=== PATIENT | female | born 1990 | race Caucasian/White ===

== ENCOUNTER 2017-01-28 16:00 | Inpatient (IN) | payer OTHER ==
[~2017-01-28] VITALS: Ht 154.9 cm; Wt 51.7 kg
--- NOTE | ~2017-01-28 | PN ---
Unit #: [id number] #: [id number] Patient: ARSALAN ALEXANDER [id number] [facility] [address] [place] [address] [id number] MR#: [id number] NAME: ARSALAN ALEXANDER ROOM: [facility] Age: 26 Sex: F Admission Date: 01/28/2017 : 1990 Attending Physician: Mike Perkins M.D. Admitting Physician: Mike Perkins M.D. Primary Care Physician: Primary Care Physician Laurel RIDLEY PROGRESS NOTES DATE OF SERVICE: 01/30/2017 SUBJECTIVE Ms. Ulrich is a 26-year-old white female with substance abuse and mood disorder. has been cooperative with treatment recommendation and was taking the medications and tolerating them fairly well with no reported side effects. MENTAL STATUS EXAMINATION Young white female, who was casually dressed with fair personal hygiene, appears to be in no acute distress or discomfort. She was awake and alert with intact orientation. Her mood was anxious with a congruent affect. Her speech was slow and restricted in content. She denies any suicidal or homicidal ideations and also denies any auditory or visual hallucinations. Her insight and judgment remain slightly impaired. TREATMENT PLAN 1. We will continue on current medications and treatment protocol. We will monitor her response to medications and make further adjustments as needed. 2. We will continue to follow up. Dictated by... Reyes Montoya/aristeo TD: 01/30/2017 07:59 JOB #: [id number] [facility] PROGRESS NOTES Page 1 of 1 X Mike Perkins MD PROGRESS NOTE
--- NOTE | ~2017-01-28 | HP ---
Unit #: [id number] #: [id number] Patient: ASUNCION ALEXANDER [id number] [place] [address] [id number] MR#: [id number] NAME: ASUNCION ALEXANDER ROOM: [facility] Age: 26 Sex: F Admission Date: 01/28/2017 : 1990 Attending Physician: Mike Perkins M.D. Admitting Physician: Mike Perkins M.D. Primary Care Physician: Primary Care Physician No HISTORY AND PHYSICAL HISTORY OF PRESENT ILLNESS Asuncion is a 26 year old admitted to [facility] because of her drug use. She uses crack cocaine and methamphetamine. PAST MEDICAL HISTORY History of illicit substance abuse to include crack cocaine and methamphetamine. PAST SURGICAL HISTORY Nothing reported. ALLERGIES No known drug allergies. SOCIAL HISTORY Smokes one pack per day. Drinks alcohol frequently. Admits to a history of illicit drug use to include crack cocaine and methamphetamine. FAMILY HISTORY Medically noncontributory. REVIEW OF SYSTEMS CONSTITUTIONAL: No fever or chills. HEENT: Denies any sore throat, ear pain or runny nose. CARDIOVASCULAR: Denies chest pain, irregular heart rhythm or palpitations. CHEST: Denies shortness of breath or cough. No hemoptysis. GASTROINTESTINAL: Denies nausea, vomiting, diarrhea or chronic constipation. ENDOCRINE: Denies history of increased thirst or urination. No recent significant weight loss or gain. GENITOURINARY: Denies dysuria, frequency, or hematuria. SKIN: Denies any rashes. HEMATOLOGIC: Denies history of increased bleeding or bruising. MUSCULOSKELETAL: Denies any hot, swollen joints. No generalized muscle pain. NEUROLOGIC: Denies problems with vision or speech. No frequent, severe headaches. No numbness, tingling or weakness in any extremities. Denies loss of bladder or bowel control. CURRENT MEDICATIONS 1. Vistaril 50 mg q. 6 hours p.r.n. 2. Desyrel p.r.n. 3. Milk of Magnesia p.r.n. Unit #: [id number] #: [id number] Patient: ASUNCION ALEXANDER 4. Maalox p.r.n. 5. Tylenol p.r.n. 6. Nicotine patch 14 mg q. day. PHYSICAL EXAMINATION GENERAL: Alert, well nourished. No apparent distress. VITAL SIGNS: Blood pressure 100/60, heart rate 76, respirations 16, and temperature 98.6. WEIGHT: 114. HEIGHT: 5 feet 1 inches. SKIN: Warm and dry without rash or lesion. HEENT: Normocephalic. TMs not viewed. Oral and nasal passages clear. Conjunctivae clear. PERRLA. EOMs intact. NECK: Supple without lymphadenopathy or thyromegaly. HEART: Regular rate and rhythm without murmur. LUNGS: Clear. ABDOMEN: Soft, nontender. : Not done. EXTREMITIES: No evidence of cyanosis, clubbing or edema. Moves all without focal deficit. NEUROLOGICAL: Grossly within normal limits. Cranial Nerves: II: Visual middleton are intact. III, IV AND : Extraocular movements are intact. Pupils are equal, round and reactive to light. V: Facial sensation is grossly normal. VII: Facial movements and expression are normal. VIII: Auditory acuity grossly intact. IX, X: Uvula is midline. Phonation is normal. XI: Patient shrugs shoulders and turns head normally. XII: Tongue protrudes in the midline. Sensory and Motor Function: Sensory and motor sensation is grossly normal. Motor: moves all extremities well. Coordination: Gait is normal. Deep Tendon Reflexes: Intact. IMPRESSION Psychiatric admission. RECOMMENDATIONS PSYCHIATRIC: Per psychiatrist. MEDICAL: I see no contraindication to participate in this facility's activities. MEDICAL PROGNOSIS Good. MEDICAL CONDITION Stable. Dictated by... Rabia Mcneal P.A.-C. for Reyes Shin/caterina TD: 01/29/2017 12:50 JOB #: [id number] Unit #: [id number] #: [id number] Patient: ASUNCION ALEXANDER HISTORY AND PHYSICAL Page 1 of 1 X Rabia Mcneal HISTORY AND PHYSICAL
--- NOTE | ~2017-01-28 | PN ---
Unit #: [id number] #: [id number] Patient: ARSALAN FUNG [id number] [facility] [address] [place] [address] [id number] I MR#: [id number] NAME: ARSALAN FUNG ROOM: P202 Age: 26 Sex: F Admission Date: 01/28/2017 : 1990 Attending Physician: Mike Perkins M.D. Admitting Physician: Mike Perkins M.D. Primary Care Physician: Primary Care Physician Laurel MENDOZA NOTES DATE OF SERVICE: 02/03/2017 SUBJECTIVE Ms. Fung a 26-year-old white female, who was seen today and chart was reviewed, and case was discussed with the staff. She has been anxious, withdrawn, and rather seclusive to herself. Meanwhile, she has been cooperative with treatment recommendations and has been taking medications and tolerating them fairly well with no reported side effects. MENTAL STATUS EXAMINATION Young white female, who was casually dressed with fair personal hygiene, appears to be in no acute distress or discomfort. She was awake and alert with intact orientation. Her mood was anxious with a congruent affect. She denies any suicidal or homicidal ideations and also denies any auditory or visual hallucinations. Her insight and judgment remain slightly impaired. TREATMENT PLAN 1. We will continue on her current medications and treatment protocol. We will monitor her response to medications and make further adjustments as needed. 2. We will continue to follow up. Dictated by... Reyes Montoya/virajl TD: 02/05/2017 01:10 JOB #: [id number] [facility] PROGRESS NOTES Page 1 of 1 X Mike Perkins MD PROGRESS NOTE
--- NOTE | ~2017-01-28 | PN ---
Unit #: [id number] #: [id number] Patient: ARSALAN FUNG [id number] [facility] [address] [place] [address] [id number] I MR#: [id number] NAME: ARSALAN FUNG ROOM: [facility] Age: 26 Sex: F Admission Date: 01/28/2017 : 1990 Attending Physician: Mike Perkins M.D. Admitting Physician: Mike Perkins M.D. Primary Care Physician: Primary Care Physician Laurel RIDLEY PROGRESS NOTES DATE 02/01/2017 DISCUSSION Ms. Fung is a 26-year-old white female with mood disorder and substance abuse who was seen today. Chart was reviewed and case was discussed with the staff. She has been anxious, withdrawn, depressed, and rather seclusive to herself. Meanwhile, she has been cooperative with the treatment recommendations and has been taking the medications and tolerating them fairly well with no reported side effects. MENTAL STATUS EXAMINATION Young white female who is casually dressed with fair personal hygiene, appears to be in no acute distress or discomfort. The patient was awake and alert on interaction with intact orientation. Her mood is anxious and depressed with a congruent affect. She reports having suicidal ideations, but denies any homicidal ideations. Her insight and judgement remain slightly impaired. TREATMENT PLAN 1. We will continue her on her current medications and treatment protocol. We will monitor her response to the medications and make further adjustments as needed. 2. We will continue to follow up. Dictated by... Reyes Montoya/jadeng TD: 02/01/2017 07:47 JOB #: [id number] Unit #: [id number] #: [id number] Patient: ARSALAN FUNG PROGRESS NOTES Page 1 of 1 X Mike Perkins MD PROGRESS NOTE
--- NOTE | ~2017-01-28 | PA ---
Unit #: [id number] #: [id number] Patient: ARSALAN FUNG [id number] [facility] [address] [place] [address] [id number] I MR#: [id number] NAME: ARSALAN FUNG ROOM: P174 Age: 26 Sex: F Admission Date: 01/28/2017 : 1990 Date of Assessment: 01/29/2017 Attending Physician: Mike Perkins M.D. Admitting Physician: Mike Perkins M.D. Primary Care Physician: Primary Care Physician No PSYCHIATRIC ASSESSMENT DATE OF SERVICE 01/29/2017. IDENTIFYING DATA Ms. Fung is a 26-year-old single white female, who is a resident of [place], [place], and was self-referred to the hospital on a voluntary basis. CHIEF COMPLAINT "I've been experiencing anxiety and my mind is racing." HISTORY OF PRESENT ILLNESS Ms. Fung is a 26-year-old white female with history of substance abuse and mood disorder, who was brought to the hospital reporting increasing anxiety and stated that she used methamphetamine 3 days ago via snorting and smoking, but denies any current withdrawal symptoms. Reports that she has only used methamphetamine twice and reports significant sleep impairment and has not slept in the last 5 days and reports appetite disturbance with weight loss and PTSD related to multiple negative life experiences. 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 [place], and reports experiencing suicidal ideation since age 5 and her suicidal thoughts have increased recently due to her substance abuse issues and she has been abusing alcohol, spice, and crack cocaine, and now methamphetamine, and last time she consumed alcohol was within the last 3 days and reports previously using alcohol on a few times a week basis and reports that last use of crack cocaine was 3 weeks ago and does endorse increasing depression, anxiety, irritability, feelings of hopelessness and helplessness, and suicidal ideations and reports that she has attempted suicide 5 times and as such, was seen to be a significant danger to herself and therefore, recommendation for inpatient level of care for safety and stabilization was made and the patient was transferred to us. SUBSTANCE ABUSE HISTORY The patient reports history of alcohol, cocaine, and methamphetamine abuse. PAST PSYCHIATRIC HISTORY The patient reports history of outpatient psychiatric treatment in the past. Review of the medical records indicate currently she is not active in treatment program, is not seeing a psychiatrist, and is not taking any psychotropic medications. PAST MEDICAL HISTORY Unit #: [id number] #: [id number] Patient: ARSALAN FUNG The patient's medical history is insignificant. ALLERGIES No known medication allergies. PERSONAL AND SOCIAL HISTORY A 26-year-old white female, who reports that she is single, unemployed, and essentially homeless and has poor social support system. MENTAL STATUS EXAMINATION Young white female who was casually dressed with fair personal hygiene, appears to be in no acute distress or discomfort. She was awake and alert on interaction with intact orientation to time, place, and person. Her mood was anxious and depressed with a congruent affect. Her speech was slow and restricted in content. Her thought processes were disorganized with some looseness of associations and flight of ideas and suicidal ideations. Her insight and judgment remain significantly impaired. DIAGNOSTIC IMPRESSION Psychiatric: Bipolar disorder, most recent episode depressed, recurrent, moderate, without psychotic features; alcohol abuse, moderate; cocaine abuse, moderate; methamphetamine abuse, moderate. Medical: None. Stressors: Moderate psychosocial stressors. TREATMENT PLAN 1. The patient has presented with history of mood disorder and substance abuse and has been decompensating and will need inpatient hospitalization for safety and stabilization. We will start her back on her home medications. We will adjust the medications and monitor response. 2. Supportive therapy was provided to the patient. 3. Safe, structured, and nourishing environment will be provided. ESTIMATED LENGTH OF STAY 4 to 5 days. ABILITY TO HELP SELF Limited. WILLINGNESS TO HELP SELF The patient appears to be willing to help self. STRENGTHS 1. Communicative. 2. Cooperative. PROBLEMS 1. Chronic dysphoric symptoms. 2. Chronic chemical dependency. 3. Poor social support system. DISCHARGE CRITERIA This will be contingent upon the patient's ability to go through detox without having any significant withdrawal symptoms as well as her ability to stay safe to herself, particularly after discharge from the hospital. Dictated by... Unit #: [id number] #: [id number] Patient: ARSALAN FUNG Reyes Montoya/aristeo TD: 01/29/2017 07:31 JOB #: [id number] PSYCHIATRIC ASSESSMENT Page 1 of 1 X Mike Perkins MD PSYCHIATRIC ASSESSMENT
--- NOTE | ~2017-01-28 | PN ---
Unit #: [id number] #: [id number] Patient: ARSALAN FUNG [id number] [facility] [address] [place] [address] [id number] MR#: [id number] NAME: ARSALAN FUNG ROOM: P202 Age: 26 Sex: F Admission Date: 01/28/2017 : 1990 Attending Physician: Mike Perkins M.D. Admitting Physician: Mike Perkins M.D. Primary Care Physician: Primary Care Physician Laurel RIDLEY PROGRESS NOTES DATE 02/02/2017 DISCUSSION Ms. Ms. Fung is a 26-year-old white female who was seen today and chart was reviewed and case was discussed with the staff. She has been anxious, withdrawn and rather seclusive to herself. Meanwhile, she has been cooperative with treatment recommendations as she has been taking the medications and tolerating them fairly well with no reported side effects. MENTAL STATUS EXAMINATION Young white female who was casually dressed with fair personal hygiene, appears to be in no acute distress or discomfort. She was awake and alert on interaction with intact orientation. Her mood was anxious with congruent affect. She denies any suicidal or homicidal ideations. Also, denies any auditory or visual hallucinations. Her insight and judgement remains slightly impaired. TREATMENT PLAN 1. We will continue her on her current medications and treatment protocol. We will monitor her response and make further adjustments as needed. 2. We will continue to follow up. Dictated by... Reyes Montoya/chan TD: 02/04/2017 05:58 JOB #: [id number] Unit #: [id number] #: [id number] Patient: ARSALAN FUNG PROGRESS NOTES Page 1 of 1 X Mike Perkins MD PROGRESS NOTE
--- NOTE | ~2017-01-28 | CO ---
Unit #: [id number] #: [id number] Patient: ARSALAN ALEXANDER [id number] [facility] [address] [place] [address] [id number] I MR#: [id number] NAME: ARSALAN ALEXANDER ROOM: [facility] Age: 26 Sex: F Admission Date: 01/28/2017 : 1990 Attending Physician: Mike Perkins M.D. Consultation Date: 01/29/2017 CONSULTATION REPORT SUBJECTIVE Sydney is a 26-year-old, admitted with a long history of illicit substance abuse include crack cocaine and methamphetamine. At the time of her admission H and P which was completed on 01/29/2017, she gave no history of herpes simplex nor did she report any "blisters." Evidently, she had reported possible blisters in the groin area to admitting nurse. She had no complaints of pain. PLAN The patient can follow up with her PCP. We do not do viral cultures at this facility. Dictated by... Rabia Mcneal P.A.-C. for Reyes Shin/aristeo TD: 01/31/2017 17:42 JOB #: [id number] CONSULTATION REPORT Page 1 of 1 X Rabia Mcneal CONSULTATION REPORT
--- NOTE | ~2017-01-28 | PN ---
Unit #: [id number] #: [id number] Patient: ARSALAN FUNG [id number] [facility] [address] [place] [address] [id number] I MR#: [id number] NAME: ARSALAN FUNG ROOM: 74 Age: 26 Sex: F Admission Date: 01/28/2017 : 1990 Attending Physician: Mike Perkins M.D. Admitting Physician: Mike Perkins M.D. Primary Care Physician: Primary Care Physician Laurel RIDLEY PROGRESS NOTES DATE January 31, 2017 DISCUSSION Ms. Fung is a 26-year-old white female, with substance abuse and mood disorder, who was seen today and chart was reviewed and the case was discussed with the staff. She is still having suicidal thoughts though she reports some improvement and rates the depression down to 5, on a scale from 1/10 with 10 being the worst depression. She still has been having on and off suicidal thoughts and has not been able to completely rid herself of the suicidal thoughts. MENTAL STATUS EXAMINATION Young white female, who was casually dressed with fair personal hygiene and appears to be in no acute distress or discomfort. She was awake and alert on interaction with intact orientation. Her mood is anxious with a congruent affect. She reports having suicidal thoughts but denying any homicidal thoughts. Her insight and judgment remain slightly impaired. TREATMENT PLAN 1. We will continue her on her current medications and treatment protocol, and will monitor her response to the medications, and make further adjustments as needed. 2. We will continue to followup. Dictated by... Reyes Montoya/andry TD: 01/31/2017 10:56 JOB #: [id number] Unit #: [id number] #: [id number] Patient: ARSALAN FUNG PROGRESS NOTES Page 1 of 1 X Mike Perkins MD PROGRESS NOTE
--- NOTE | ~2017-01-28 | DS ---
Unit #: [id number] #: [id number] Patient: [facility] [id number] [facility] [address] [place] [address] [id number] I MR#: [id number] NAME: ARSALAN FUNG ROOM: [facility] Age: 26 Sex: F Admission Date: 01/28/2017 : 1990 Discharge Date: 02/04/2017 Attending Physician: Mike Perkins M.D. Primary Care Physician: Primary Care Physician No DISCHARGE SUMMARY IDENTIFYING DATA Ms. Fung is a 26-year-old single white female, who is a resident of [place], [place], and was self-referred to the hospital on a voluntary basis. DISCHARGE DIAGNOSES Psychiatric: Bipolar disorder, most recent episode depressed, recurrent, moderate, without psychotic features. Alcohol abuse, moderate. Cocaine abuse, moderate. Methamphetamine abuse, moderate. Medical: None. Stressors: Mild psychosocial stressors. HISTORY OF PRESENT ILLNESS Please see initial psychiatric evaluation for details. PAST PSYCHIATRIC HISTORY Please see initial psychiatric evaluation for details. PAST MEDICAL HISTORY Please see initial psychiatric evaluation for details. HOSPITAL COURSE The patient was admitted to the adult psychiatric unit at [facility] and was oriented to the hospital environment. Routine p.r.n. medications were initiated, and she was started on the detox protocol. The patient was seen to be anxious, withdrawn and rather disorganized and exhibiting some mood instability, and therefore a combination of Celexa and Risperdal was initiated and she was closely monitored. She was taking the medications regularly, was tolerating them fairly well, and was able to show a decent therapeutic response with a complete resolution of detox symptoms and was denying any suicidal or homicidal ideations and was not seen to be a danger to self or anyone else, and as such, it was decided that she will be kept on her current medications and will be discharged home and will continue treatment on an outpatient basis. DISCHARGE MEDICATIONS Risperdal 0.5 mg b.i.d. for mood disorder and Celexa 20 mg a day for depression. DISCHARGE CONDITION Stable. Unit #: [id number] #: [id number] Patient: ARSALAN FUNG PROGNOSIS Fair. Dictated by... Mike Perkins M.D. IAA/modl TD: 02/04/2017 06:49 JOB #: [id number] DISCHARGE SUMMARY Page 1 of 1 X Mike Perkins MD DISCHARGE SUMMARY
[2017-01-29 09:45] LABS: BASOPHIL# 0.1 X10e3 (0-0.3); EOSINOPHIL# 0.2 X10e3 (0-0.7); EOSINOPHIL% 1.6 % (0.0-7.0); HEMATOCRIT 43.5 % (35.0-45.0); HEMOGLOBIN 14.3 gm/dL (12.0-16.0); LYMPHOCYTE# 2.3 X10e3 (1.0-3.5); LYMPHOCYTE% 23.2 % (17.0-45.0); MEAN CORPUSCULAR HEMOGLOBIN 32.6 PG (28-34); MEAN PLATELET VOLUME 8.2 FL (6.5-11.5); MONOCYTE# 0.9 X10e3 (0-1.0); MONOCYTE% 8.8 % (3.0-12.0); NEUTROPHIL# 6.5 X10e3 (1.5-7.1); NEUTROPHIL% 65.4 % (40-75); PLATELET COUNT 346 X10e3 (140-420); RED BLOOD COUNT 4.39 X10e (3.90-5.30); RED CELL DISTRIBUTION WIDTH 12.9 % (11.0-15.5); WHITE BLOOD COUNT 9.9 X10e3 (4.0-10.5)
[2017-01-29 09:48] LABS: DIFF IND NO
[2017-01-29 10:03] LABS: BILIRUBIN,TOTAL 0.9 mg/dL (0.2-2.0); BUN/CREATININE RATIO 17.5; CALCIUM SERUM 9.2 mg/dL (8.4-10.2); CREATININE SERUM 0.8 mg/dL (0.6-1.4); GLOM FILT RATE Estimated 100.4 mL/min (>60); POTASSIUM 3.9 mmol/L (3.5-5.1); PROTEIN TOTAL SERUM 6.8 g/dL (6.0-8.3)
[2017-01-30 09:45] LABS: URINE APPEARANCE CLEAR; URINE BILIRUBIN NEG (NEG); URINE BLOOD NEG (NEG); URINE COLOR YELLOW; URINE GLUCOSE NEG (NEG); URINE KETONE TRACE (NEG); URINE LEUKOCYTE ESTERASE NEG (NEG); URINE NITRATE NEG (NEG); URINE PH 5.5 (5-8); URINE PROTEIN NEG (NEG); URINE SPECIFIC GRAVITY 1.014 (1.003-1.035); URINE UROBILINOGEN 0.2 MG/DL (NEG)
[2017-01-30 11:51] LABS: AMPHETAMINE POS (NEG); BARBITURATES NEG (NEG); BENZODIAZEPINES NEG (NEG); COCAINE NEG (NEG); MARIJUANA POS (NEG); OPIATES NEG (NEG); TRICYCLIC ANTIDEPRESSANTS NEG (NEG); U METHADONE NEG (NEG)
== END 2017-02-04 11:52 | disposition home or self-care (01) | DRG 885 ==
LOC: P1E 18:52 → P2S 02-03 06:47
PROVIDERS: Psychiatry & Neurology Psychiatry
DX: F31.32 Bipolar disorder, current episode depressed, moderate (principal); F14.20 Cocaine dependence, uncomplicated; R45.851 Suicidal ideations; F15.20 Other stimulant dependence, uncomplicated; F10.20 Alcohol dependence, uncomplicated; Z59.0 Homelessness; F17.200 Nicotine dependence, unspecified, uncomplicated
CPT/HCPCS: 80053; 80307; 81003; 84703; 85025

== ENCOUNTER 2017-02-21 09:15 | Inpatient (IN) | payer OTHER ==
[~2017-02-21] VITALS: Ht 157.5 cm; Wt 54.4 kg
--- NOTE | ~2017-02-21 | HP ---
Unit #: [id number] #: [id number] Patient: ASUNCION ALEXANDER [id number] [facility] [address] [place] [address] [id number] I MR#: [id number] NAME: ASUNCION ALEXANDER ROOM: 32 Age: 26 Sex: F Admission Date: 02/21/2017 : 1990 Attending Physician: Mike Perkins M.D. Admitting Physician: Mike Perkins M.D. Primary Care Physician: Generic Doctor Not In System HISTORY AND PHYSICAL HISTORY OF PRESENT ILLNESS Asuncion is a 26-year-old admitted to [address] [place] [address] because of her continued drug use. She was just discharged from this facility after treatment for the same. The patient was seen and history and physical dated 01/29/2017 was reviewed, this is current, no changes. Please see H & P dated 01/29/2017. Dictated by... Rabia Mcneal P.A.-C. for Reyes Shin/chan TD: 02/21/2017 21:03 JOB #: [id number] HISTORY AND PHYSICAL Page 1 of 1 X Rabia Mcneal HISTORY AND PHYSICAL
--- NOTE | ~2017-02-21 | PA ---
Unit #: [id number] #: [id number] [facility] [id number] [facility] [address] [place] [address] [id number] MR#: [id number] NAME: ARSALAN FUNG ROOM: 32 Age: 26 Sex: F Admission Date: 02/21/2017 : 1990 Date of Assessment: 02/21/2017 Attending Physician: Mike Perkins M.D. Admitting Physician: Mike Perkins M.D. Primary Care Physician: Generic Doctor Not In System PSYCHIATRIC ASSESSMENT IDENTIFYING DATA Ms. Fung is a 26-year-old single white female, who is a resident of [place], [place], and was self-referred to the hospital on a voluntary basis with chief complaint, I cannot get myself focused on anything, I am losing it." HISTORY OF PRESENT ILLNESS Ms. Fung is a 26-year-old white female, with mood disorder, who came to the hospital reporting that she feels like she is "losing it, I cannot have a conversation right now, my mind is not saying anything nice, I have thoughts about islam in the past, I smoked meth about five times and the last time I used it was a couple of days ago." The patient reports that she is going to get "sucked up by the sun." the patient was exhibiting and displaying acute psychosis and reports that Lon is talking to her through the phone and the lunch tray was talking to her. The patient was agitated, irritable, loud, hostile, and completely out of touch with reality with acute psychosis and unable to carry on any meaningful conversation. The patient reports that she has attempted suicide five times and most recently was a year ago via splitting her wrists and was seen to be a significant danger to herself and others, part of her mood and psychosis, and further recommendations, inpatient level of care for safety and stabilization and was admitted. The patient was placed on the inpatient unit. SUBSTANCE ABUSE HISTORY The patient reports history of experimentation with cannabis but methamphetamine has been her drug of choice, and she reports that she has used multiple times in the last few days. PAST PSYCHIATRIC HISTORY The patient has had [facility] other [facility] and has been diagnosed with mood disorder and psychosis, and review of the medical records indicates that she is supposed to be on Risperdal and Celexa but has been noncompliant with the medications. PAST MEDICAL HISTORY The patient's medical history is insignificant. MEDICATION ALLERGIES No known medication allergies. CURRENT MEDICATIONS Unit #: [id number] #: [id number] Patient: ARSALAN FUNG Risperdal and Celexa. PERSONAL AND SOCIAL HISTORY Xlovik-ccbzv-nkbh-old white female, reports that she is single, unemployed and essentially homeless and has poor social support system. MENTAL STATUS EXAM Young white female, who was casually dressed with fair personal hygiene and appears to be in no acute distress or discomfort. She was awake and alert on interaction with intact orientation to time, place, and person. Her mood is anxious and depressed with a congruent affect. Her speech is slow and restricted in content. Her thought processes are disorganized with some looseness of associations and flight of ideas. Her insight and judgment remain significantly impaired. DIAGNOSTIC IMPRESSION Psychiatric: [place] I: Bipolar disorder, most recent episode depressed, recurrent, moderate, with psychosis. Methamphetamine dependence, moderate. [place] II: [place] III: None. [place] IV: Moderate psychosocial stressors. [place] V: TREATMENT PLAN 1. The patient has presented with history of mood disorder and psychosis and has been decompensating and will need inpatient hospitalization for safety and stabilization, and will start her back on her medications and will adjust the medications and monitoring response. 2. Supportive therapy was provided to the patient. 3. Safe, structured, and nourishing environment will be provided. ESTIMATED LENGTH OF STAY Xbcq-ld-jtkao days. ABILITY TO HELP SELF Limited. WILLINGNESS TO HELP SELF The patient appears to be willing to help self. STRENGTHS 1. Communicative. 2. Cooperative. PROBLEMS 1. Chronic dysphoric symptoms. 2. Poor social support system. DISCHARGE CRITERIA This will be contingent upon the patient's ability to show resolution of her depression and psychosis, and her ability to stay safe to herself, particularly after discharge from the hospital. Dictated by... Unit #: [id number] #: [id number] Patient: ARASLAN FUNG Reyes Montoya/andry TD: 02/22/2017 12:47 JOB #: [id number] PSYCHIATRIC ASSESSMENT Page 1 of 1 X Mike Perkins MD PSYCHIATRIC ASSESSMENT
--- NOTE | ~2017-02-21 | DS ---
Unit #: [id number] #: [id number] Patient: [facility] FUNG [id number] [facility] [address] [place] [address] [id number] MR#: [id number] NAME: ARSALAN FUNG ROOM: [facility] Age: 26 Sex: F Admission Date: 02/21/2017 : 1990 Discharge Date: 02/26/2017 Attending Physician: Mike Perkins M.D. Primary Care Physician: Generic Doctor Not In System DISCHARGE SUMMARY IDENTIFYING DATA Ms. Fung is a 26-year-old single white female, who is a resident of [place], [place], who was self-referred to the hospital on a voluntary basis. HISTORY OF PRESENT ILLNESS Please see initial psychiatric evaluation for details. PAST PSYCHIATRIC HISTORY Please see initial psychiatric evaluation for details. PAST MEDICAL HISTORY Please see initial psychiatric evaluation for details. HOSPITAL COURSE The patient [facility] and was oriented to the hospital environment. Routine p.r.n. medications were initiated and she was started back on her home medications and upon initial presentation, the patient was seen to be acutely psychotic, agitated, and aggressive, and did end up in seclusion, and restraint; however, Risperdal and Celexa were initiated with a good tolerability and therapeutic response, as the patient was seen to be taking her medications regularly and was tolerating them fairly well and was able to show a decent therapeutic response with no further episodes of agitation and aggression, or psychosis noted, and the patient wanted to go home and was willing to continue treatment on an outpatient basis and not being seen to be a danger to self or anyone else. It was decided that she will be discharged home and will continue treatment on an outpatient basis. DISCHARGE DIAGNOSES Psychiatric: [place] I Bipolar disorder, most recent episode, depressed, recurrent, moderate, with psychosis. Methamphetamine dependence, moderate. [place] II [place] III None. [place] IV Moderate psychosocial stressors. [place] V DISCHARGE MEDICATIONS 1. Risperdal 1 mg twice a day for bipolar disorder 2. Celexa 20 mg a day for depression Unit #: [id number] #: [id number] Patient: ARSALAN FUNG CONDITION AT DISCHARGE Stable. PROGNOSIS Fair. Dictated by... Reyes Montoya/andry TD: 02/28/2017 12:24 JOB #: [id number] DISCHARGE SUMMARY Page 1 of 1 X Mike Perkins MD DISCHARGE SUMMARY
--- NOTE | ~2017-02-21 | PN ---
Unit #: [id number] #: [id number] Patient: ARSALAN ALEXANDER [id number] [facility] [address] [place] [address] [id number] MR#: [id number] NAME: ARSALAN ALEXANDER ROOM: [facility] Age: 26 Sex: F Admission Date: 02/21/2017 : 1990 Attending Physician: Mike Perkins M.D. Admitting Physician: Mike Perkins M.D. Primary Care Physician: Generic Doctor Not In System [facility] PROGRESS NOTES DATE OF SERVICE: 02/23/2017 SUBJECTIVE Ms. Ulrich is a 26-year-old white female, who was seen today and chart was reviewed, and case was discussed with the staff. She has been anxious, withdrawn and seclusive to herself, though has not shown any agitation or aggression. Meanwhile, she has been taking medications and tolerating them fairly well with no reported side effects. MENTAL STATUS EXAMINATION Young white female, who was casually dressed with fair personal hygiene, appears to be in no acute distress or discomfort. She was awake and alert on interaction with intact orientation. Her mood was anxious with a congruent affect. She denies any suicidal or homicidal ideations. Her insight and judgment remain slightly impaired. TREATMENT PLAN 1. We will continue on her current medications and treatment protocol. We will monitor her response to medications and make further adjustments as needed. 2. We will to continue to follow up. Dictated by... Reyes Montoya/aristeo TD: 02/26/2017 00:47 JOB #: [id number] [facility] PROGRESS NOTES Page 1 of 1 X Mike Perkins MD PROGRESS NOTE
--- NOTE | ~2017-02-21 | PN ---
Unit #: [id number] #: [id number] Patient: ARSALAN FUNG [id number] [facility] [address] [place] [address] [id number] MR#: [id number] NAME: ARSALAN FUNG ROOM: [facility] Age: 26 Sex: F Admission Date: 02/21/2017 : 1990 Attending Physician: Mike Perkins M.D. Admitting Physician: Mike Perkins M.D. Primary Care Physician: Generic Doctor Not In System [facility] PROGRESS NOTES DATE 02/22/2017 DISCUSSION Ms. Fung was seen today and chart was reviewed and case was discussed with the staff who report patient had a rough day yesterday with increasing agitation and aggression and rapid speech and in holding twice, persistent agitation and aggression though she was finally able to settle down and have a better night's sleep. Per report, patient was laying comfortably in bed and was unable to carry on much conversation though she has been taking medications and tolerating them fairly well with no reported side effects. MENTAL STATUS EXAMINATION Young white female who was casually dressed with fair personal hygiene and appears to be in no acute distress or discomfort. She was awake and alert with intact orientation. Her mood was anxious with congruent affect. She denies any suicidal or homicidal ideations. Her insight and judgement remains slightly impaired. TREATMENT PLAN 1. Will continue on current medications and treatment protocol. Will monitor her response. Will make adjustments to medications and treatment plan. 2. Will continue to follow up. Dictated by... Reyes Montoya/bettie TD: 02/22/2017 20:31 JOB #: [id number] Unit #: [id number] #: [id number] Patient: ARSALAN FUNG PROGRESS NOTES Page 1 of 1 X Mike Perkins MD PROGRESS NOTE
--- NOTE | ~2017-02-21 | PN ---
Unit #: [id number] #: [id number] Patient: ARSALAN FUNG [id number] [facility] [address] [place] [address] [id number] I MR#: [id number] NAME: ARSALAN FUNG ROOM: [facility] Age: 26 Sex: F Admission Date: 02/21/2017 : 1990 Attending Physician: Mike Perkins M.D. Admitting Physician: Mike Perkins M.D. Primary Care Physician: Generic Doctor Not In System [facility] PROGRESS NOTES DATE OF SERVICE 02/24/2017 DISCUSSION Ms. Fung is a 26-year-old white female who was seen today and chart was reviewed and case was discussed with the staff. She has been anxious, withdrawn and rather seclusive to herself. Meanwhile, she has been cooperative with treatment recommendations as she has been taking the medications and tolerating them fairly well. MENTAL STATUS EXAMINATION Young white female who was casually dressed with fair personal hygiene, appears to be in no acute distress or discomfort. She was awake and alert on interaction with intact orientation. Her mood was anxious with congruent affect. She denies any suicidal or homicidal ideations. Her insight and judgement remains slightly impaired. TREATMENT PLAN 1. We will continue her on her current treatment protocol. We will monitor her response to the medication and make further adjustments as needed. 2. We will continue to follow up. Dictated by... Reyes Montoya/chan TD: 02/26/2017 02:45 JOB #: [id number] [facility] PROGRESS NOTES Page 1 of 1 X Mike Perkins MD PROGRESS NOTE
[2017-02-22 09:50] LABS: BASOPHIL# 0.1 X10e3 (0-0.3); EOSINOPHIL# 0.2 X10e3 (0-0.7); EOSINOPHIL% 1.6 % (0.0-7.0); HEMOGLOBIN 13.6 gm/dL (12.0-16.0); LYMPHOCYTE# 1.7 X10e3 (1.0-3.5); MEAN CELL VOLUME 97.1 FL (83-96); MEAN CORPUSCULAR HEMOGLOBIN 32.3 PG (28-34); MEAN CORPUSCULAR HGB CONC 33.3 g/dL (30-36); MEAN PLATELET VOLUME 7.7 FL (6.5-11.5); MONOCYTE# 0.8 X10e3 (0-1.0); MONOCYTE% 6.8 % (3.0-12.0); NEUTROPHIL# 9.3 X10e3 (1.5-7.1); NEUTROPHIL% 76.6 % (40-75); PLATELET COUNT 296 X10e3 (140-420); RED BLOOD COUNT 4.22 X10e (3.90-5.30); RED CELL DISTRIBUTION WIDTH 12.5 % (11.0-15.5); WHITE BLOOD COUNT 12.2 X10e3 (4.0-10.5)
[2017-02-22 09:54] LABS: DIFF IND NO
[2017-02-22 09:56] LABS: ALBUMIN SERUM 3.8 g/dL (3.5-5.0); BILIRUBIN,TOTAL 0.8 mg/dL (0.2-2.0); BUN/CREATININE RATIO 15.55; CALCIUM SERUM 9.4 mg/dL (8.4-10.2); CREATININE SERUM 0.9 mg/dL (0.6-1.4); GLOM FILT RATE Estimated 87.1 mL/min (>60); POTASSIUM 4.4 mmol/L (3.5-5.1); PROTEIN TOTAL SERUM 6.5 g/dL (6.0-8.3)
[2017-02-26 12:54] LABS: URINE APPEARANCE CLEAR; URINE BILIRUBIN NEG (NEG); URINE BLOOD NEG (NEG); URINE COLOR YELLOW; URINE GLUCOSE NEG (NEG); URINE KETONE NEG (NEG); URINE LEUKOCYTE ESTERASE TRACE (NEG); URINE NITRATE NEG (NEG); URINE PROTEIN NEG (NEG); URINE SPECIFIC GRAVITY 1.012 (1.003-1.035); URINE UROBILINOGEN 0.2 MG/DL (NEG)
[2017-02-26 12:57] LABS: URBCS1 AUWI 0-2 /[HPF] (0-2); URINE BACTERIA AUWI NEG (NEGATIVE); URINE SQUAMOUS EPITHELIAL CELL NONE SEEN /[HPF]; UWBCS1 AUWI 0-2 (0-5)
[2017-02-26 13:21] LABS: AMPHETAMINE NEG (NEG); BARBITURATES NEG (NEG); BENZODIAZEPINES NEG (NEG); COCAINE NEG (NEG); MARIJUANA POS (NEG); OPIATES NEG (NEG); TRICYCLIC ANTIDEPRESSANTS NEG (NEG); U METHADONE NEG (NEG)
== END 2017-02-26 13:15 | disposition home or self-care (01) | DRG 885 ==
LOC: P1S 12:18 → P2L 02-23 16:11
PROVIDERS: Psychiatry & Neurology Psychiatry
DX: F31.5 Bipolar disorder, current episode depressed, severe, with psychotic features (principal); F15.20 Other stimulant dependence, uncomplicated; Z91.14 Patient's other noncompliance with medication regimen
CPT/HCPCS: 80053; 80307; 81003; 84703; 85025